=== PATIENT | male | born 1985 | race Caucasian/White ===

== ENCOUNTER 2019-09-10 02:51 | Emergency (ER) | payer BC ==
--- NOTE | 2019-09-10 03:03 | EDM.PDOC ---
ED HPI GENERAL MEDICAL PROBLEM - General Chief Complaint: General Stated Complaint: half-way clearance Time Seen by Provider: 09/10/19 02:52 Source of Information: Reports: Patient, Police History Limitations: Reports: No Limitations - History of Present Illness INITIAL COMMENTS - FREE TEXT/NARRATIVE: Patient needs clearance to go to half-way after been drinking after being brought in by the police. Patient is alert and oriented x4 follows all commands cranial nerves II through XII are intact has normal gait Duration: Hour(s): Associated Symptoms: Reports: No Other Symptoms - Related Data Allergies Allergy/AdvReac Type Severity Reaction Status Date / Time No Known Allergies Allergy Verified 09/10/19 02:51 Home Meds: Home Meds . [No Known Home Meds] 09/10/19 [History] ED ROS GENERAL - Review of Systems Review Of Systems: See Below Constitutional: Reports: No Symptoms HEENT: Reports: No Symptoms Respiratory: Reports: No Symptoms Cardiovascular: Reports: No Symptoms Endocrine: Reports: No Symptoms GI/Abdominal: Reports: No Symptoms : Reports: No Symptoms Musculoskeletal: Reports: No Symptoms Skin: Reports: No Symptoms Neurological: Reports: No Symptoms Psychiatric: Reports: No Symptoms Hematologic/Lymphatic: Reports: No Symptoms Immunologic: Reports: No Symptoms ED EXAM, GENERAL - Physical Exam Exam: See Below Exam Limited By: No Limitations General Appearance: Alert, WD/WN, No Apparent Distress Nose: Normal Inspection, Normal Mucosa, No Blood Throat/Mouth: Normal Inspection, Normal Lips, Normal Teeth, Normal Gums, Normal Oropharynx, Normal Voice, No Airway Compromise Head: Atraumatic, Normocephalic Neck: Normal Inspection, Supple, Non-Tender, Full Range of Motion Respiratory/Chest: No Respiratory Distress, Lungs Clear, Normal Breath Sounds, No Accessory Muscle Use, Chest Non-Tender Cardiovascular: Normal Peripheral Pulses, Regular Rate, Rhythm, No Edema, No Gallop, No JVD, No Murmur, No Rub GI/Abdominal: Normal Bowel Sounds, Soft, Non-Tender, No Organomegaly, No Distention Back Exam: Normal Inspection, Full Range of Motion Extremities: Normal Inspection, Normal Range of Motion, Non-Tender, No Pedal Edema, Normal Capillary Refill Neurological: Alert, Oriented, CN II-XII Intact, Normal Cognition, Normal Gait, Normal Reflexes, No Motor/Sensory Deficits Psychiatric: Normal Affect, Normal Mood Skin Exam: Warm, Dry, Intact, Normal Color, No Rash Course - Vital Signs Last Recorded V/S: Last Vital Signs Temp 36.9 C 09/10/19 02:52 Pulse 111 H 09/10/19 02:52 Resp 14 09/10/19 02:52 BP 147/89 H 09/10/19 02:52 Pulse Ox 96 09/10/19 02:52 Departure - Departure Time of Disposition: 02:55 Disposition: Home, Self-Care 01 Condition: Good Clinical Impression: ETOH abuse - Discharge Information *PRESCRIPTION DRUG MONITORING PROGRAM REVIEWED*: No *COPY OF PRESCRIPTION DRUG MONITORING REPORT IN PATIENT DAINA: No Instructions: Alcohol Use Disorder Forms: ED Department Discharge Additional Instructions: Return to the emergency room if anything changes or gets worse Sepsis Event Note - Evaluation Sepsis Screening Result: No Definite Risk - Focused Exam Vital Signs: Vital Signs Temp Pulse Resp BP Pulse Ox 09/10/19 02:52 36.9 C 111 H 14 147/89 H 96 Date Exam was Performed: 09/10/19 Time Exam was Performed: 03:05 - Problem List & Annotations (1) ETOH abuse SNOMED Code(s): 03116987 Code(s): F10.10 - ALCOHOL ABUSE, UNCOMPLICATED Status: Acute
== END 2019-09-10 03:00 | disposition home or self-care (01) ==
LOC: VM.ED 02:51
DX: F10.10 Alcohol abuse, uncomplicated (principal)
CPT/HCPCS: 99283